=== PATIENT | male | born 1975 | race African-American/Black ===

== ENCOUNTER 2019-01-26 11:26 | Observation (INO) | payer OTHER ==
[2019-01-26] MEDS ORDERED: BUPIVACAINE 0.5% (SDV) 30 ML INJ (16:12)
[2019-01-26] MEDS ORDERED: HYDROmorphONE 1 MG/5 ML IV SYRINGE IV ×3 (16:30)
[2019-01-26] MEDS ORDERED: OXYCODONE/ACETAMINOPHEN (5/325) TAB PO ×2 (16:30)
[2019-01-26] MEDS ORDERED: HYDROmorphONE 2 MG/ML SYG (16:45)
[2019-01-26] MEDS ORDERED: DESFLURANE 15 MIN (16:45)
[2019-01-26] MEDS ORDERED: LIDOCAINE 2% (SDV) 5 ML INJ (16:45)
[2019-01-26] MEDS ORDERED: ROCURONIUM 50 MG INJ (16:45)
[2019-01-26] MEDS ORDERED: PROPOFOL 20 ML (16:45)
[2019-01-26] MEDS ORDERED: ROPIVACAINE 0.5 % 30 ML VIAL (16:53)
[2019-01-26] MEDS ORDERED: CEFAZOLIN 1 GM INJ (16:58)
[2019-01-26] MEDS ORDERED: ONDANSETRON 4 MG INJ ×2 (16:58→19:04)
[2019-01-26] MEDS ORDERED: MIDAZOLAM 1 MG/ML 2 ML INJ (16:59)
[2019-01-26] MEDS ORDERED: KETOROLAC 30 MG INJ (16:59)
[2019-01-26] MEDS ORDERED: LABETALOL HCL 20MG INJ ×2 (18:36→20:50)
[2019-01-26] MEDS ORDERED: SUGAMMADEX SODIUM 200 MG/2 ML VIAL IV (18:44)
[2019-01-26] MEDS: NEOMYC/POLYMYX/BACIT 30 GM OINT (18:50)
[2019-01-26] MEDS: POLYMYXIN/BACITRACIN 1L IRRIG (18:50)
[2019-01-26] MEDS: ROPIVACAINE 0.5 % 30 ML VIAL (18:50)
[2019-01-26] MEDS: KETOROLAC 30 MG INJ IV (19:15)
[2019-01-26] MEDS ORDERED: ONDANSETRON 4 MG INJ IV (23:00)
[2019-01-26] MEDS ORDERED: NACL 0.9% 3 ML SYG IV (23:00)
[2019-01-26] MEDS ORDERED: ACETAMINOPHEN 325 MG TAB PO (23:00)
[2019-01-26] MEDS: morphine 2 MG INJ IV (23:11)
[2019-01-26] MEDS: HYDROCODONE/APAP (5/325) TAB PO (23:12)
[2019-01-27] MEDS: HYDROCODONE/APAP (5/325) TAB PO ×2 (03:22→08:53)
[2019-01-27] MEDS: ALPRAZOLAM 1 MG TAB PO (03:57)
[2019-01-27] MEDS: LORAZEPAM 2 MG INJ IV (04:48)
[2019-01-27] MEDS ORDERED: ADENOSINE 3 MG/ML SYRINGE IV (07:00)
[2019-01-27] MEDS: KETOROLAC 30 MG INJ IV (09:19)
[2019-01-27] MEDS ORDERED: morphine 4 MG/ML VIAL IV (09:30)
[2019-01-27] MEDS: HYDROmorphONE 1 MG/ML SYG IV (09:30)
[2019-01-27] MEDS ORDERED: IBUPROFEN 600 MG TAB PO (17:00)
== END 2019-01-27 12:00 | disposition home or self-care (01) ==
LOC: SDS 11:26 → 6WM 21:53
DX: S83.511A Sprain of anterior cruciate ligament of right knee, initial encounter (principal); S83.281A Other tear of lateral meniscus, current injury, right knee, initial encounter; F41.9 Anxiety disorder, unspecified; X58.XXXA Exposure to other specified factors, initial encounter
CPT/HCPCS: 29881; 71045; 80053; 82306; 82550; 82553; 83735; 84439; 84443; 84484; 85025; 93005; 93306; 96374; G0378